=== PATIENT | female | born 1985 | race Caucasian/White ===

== ENCOUNTER 2017-03-23 15:04 | Inpatient (IN) | payer BC ==
[2017-03-23] MEDS ORDERED: Sodium Chloride 0.9% 10 ML Syringe FLUSH PRN (21:45)
[2017-03-23] MEDS ORDERED: Ibuprofen 800 MG Tab PO PRN (21:53)
[2017-03-23] MEDS ORDERED: Acetaminophen/Codeine 300-30 MG Tab PO PRN (21:53)
[2017-03-23] MEDS ORDERED: Ibuprofen 800 MG Tab ONE (22:06)
[2017-03-23] MEDS ORDERED: Lactated Ringers 1,000 ML IV ONE (22:20)
[2017-03-23] MEDS ORDERED: Oxytocin 10 Units/1 ML SDV IM ONE (22:30)
[2017-03-24 09:02] VITALS: BP 114/87
--- NOTE | 2017-03-25 10:53 | DISCH ---
DISCHARGE DATE: 03/24/2017 HOSPITAL COURSE: Alena Sparks is a 31-year-old, 3 female, 1 day . Feeling better. Symptoms of dizziness and lightheadedness have resolved. Intravenous fluids have been provided. PHYSICAL EXAMINATION: Vital signs are stable. U-2 tone satisfactory. Perineum intact. LABORATORY DATA: hemoglobin 11.0. ASSESSMENT: day 1, no problems. PLAN: Doing well, discharged with lengthy instructions, 6-week followup. /[id number] /JESSICA
--- NOTE | 2017-03-27 09:18 | DEL ---
DATE OF DELIVERY: 03/23/2017 Alena Sparks is a 31-year-old, 3, para 2-0-0-2 female, EDC 04/02/2017, who was admitted to [facility] on 03/23/2017. She had rupture of membranes about 1500 hours. Fluid has been clear. Group B rectovaginal culture was negative. She had had some contractions, but no excessive contractions or uterine irritability. Baby had been active. Amniotic fluid was clear. PHYSICAL EXAMINATION: VITAL SIGNS: On admission, vital signs are stable. CHEST: Clear. HEART: Regular. ABDOMEN: Term gravid uterus. She was found to 6 to 7 cm dilated, ruptured membranes, clear fluid, satisfactory well- being. She was observed through the course of the afternoon. Contractions were reluctant. No recommendation for intervention other than observation. Ambulation created improved contractions, back in bed, into the tub. Shortly after 1930 hours, contractions became more earnest. Requested intervention, she was found to be nearly complete. I was asked to assist delivery. There was no time during any observation, that there was any sense of difficulty with wellbeing during the labor process. There were appropriate times of decreased variability, but nice accelerations and no decelerations. When complete, a little bit of reluctance to participate. A single push brought the baby down to . She was prepped and draped in usual fashion. Second push crowned, perineum was protected. Third push was delivered without incident, male , in SHARON presentation. Mouth and oropharynx were suctioned, loose nuchal cord was relieved, and delivered without difficulty. Oral suctioning and stimulation were obtained, placed on mom's tummy for appropriate timing and delay of clamping cord. Nursing observation though revealed decreased tone, heart rate of 70, and was brought over to the [place] for resuscitation. Resuscitation per Dr. Guerrero, Anesthesia staff, and nursing staff. Cord blood was obtained, three cord vessels identified. Uterine tone was maintained by massage. Perineum was inspected, abrasion, no tear, no episiotomy required. Cervix was viewed, free of complication factors. Intramuscular Pitocin was given. ASSESSMENT: 1. Term intrauterine . 2. Spontaneous rupture of membranes. 3. Vaginal delivery 6 pound 8 ounce male , scores 3, 5, and 6. 4. Small abrasion, no episiotomy. 5. Plan for nursing. PLAN: Mom with routine course. Expect no complicating issue. The patient did have some episodes of atony, intramuscular Pitocin was given, intravenous fluids were provided. Symptomatic control and vital signs improved appropriately. /[id number] TREY/JESSICA
== END 2017-03-24 08:55 | disposition home or self-care (01) | DRG 560 ==
LOC: FB.OBCHECK 15:04 → FB.OB 15:06 → FB.OBCHECK 15:50
PROVIDERS: ADMIT Family Medicine; ATTEND Family Medicine
PROC: 10E0XZZ Delivery of Products of Conception, External Approach (ICD-10-PCS; principal; 2017-03-24)
DX: O69.81X0 Labor and delivery complicated by cord around neck, without compression, not applicable or unspecified (principal); O62.2 Other uterine inertia; Z3A.00 Weeks of gestation of pregnancy not specified; Z37.0 Single live birth
CPT/HCPCS: 36415; 59409; 85014; 85018; A9270-GY; J2590; J7120